=== PATIENT | female | born 1945 | race Hispanic/Latino ===

== ENCOUNTER 2021-11-09 14:32 | Inpatient (IN) | payer OTHER ==
[~2021-11-09] VITALS: Ht 160 cm; Wt 108.7 kg
[2021-11-09] MEDS ORDERED: CEFTRIAXONE 1G VIAL IVP ONE (15:00)
[2021-11-09] MEDS ORDERED: DEXAMETHASONE SOD PHOSPHATE 4 MG/ML 1ML VIAL IVP ONE (15:00)
[2021-11-09] MEDS ORDERED: ACETAMINOPHEN 500 MG TABLET PO ONE (15:00)
[2021-11-09 15:03] LABS: ABG BASE EXCESS -2.4 mmol/L (-2.0-3.0); ABG HCO3 22.2 mmol/L (21.0-28.0); ABG PCO2 38 mmHg (32-45)
[2021-11-09 15:17] LABS: BASOPHILS % (AUTO) 0.4 % (0.0-5.0); EOSINOPHILS % (AUTO) 0.8 % (0.0-8.0); HEMATOCRIT 38.4 % (36-48); LYMPHOCYTES % (AUTO) 6.1 % (21.0-51.0); MEAN CORPUSCULAR HEMOGLOBIN 32.3 pg (27.0-33.0); MEAN CORPUSCULAR HGB CONC 34.6 g/dL (32.0-36.0); MEAN CORPUSCULAR VOLUME 93.2 fL (79-99); MONOCYTES % (AUTO) 3.1 % (3.0-13.0); NEUTROPHILS % (AUTO) 86.7 % (40.0-77.0); NUCLEATED RED BLOOD CELLS 0.1 % (0.0-0.19); PLATELET COUNT (AUTO) 219 K/uL (130-400); RED BLOOD CELL COUNT(AUTO) 4.12 MIL/uL (4.00-5.50); RED CELL DISTRIBUTION WIDTH 13.2 % (11.0-15.5)
[2021-11-09] MEDS ORDERED: 0.9%NACL 100ML 100 ML ONE (15:32)
[2021-11-09 15:40] LABS: CREATININE 1.2 mg/dL (0.5-1.5); POTASSIUM 4.5 mmol/L (3.5-5.1)
[2021-11-09] MEDS: DOXYCYCLINE HYCLATE 100 MG TABLET PO SCH ×3 (15:40→20:34)
[2021-11-09 15:47] LABS: ALBUMIN 2.7 g/dL (3.5-5.0); BILIRUBIN,TOTAL 0.4 mg/dL (0.2-1.0); TOTAL PROTEIN, SERUM 7.3 g/dL (6.0-8.3)
[2021-11-09 15:55] LABS: CRP QUANTITATIVE 191.4 mg/L (0.00-9.0)
[2021-11-09] MEDS ORDERED: ALBUTEROL INHALER 90MCG/INH IH PRN (20:30)
[2021-11-09] MEDS: INSULIN HUMULIN R 100 UNIT/ML 3ML SQ SCH ×2 (20:30→20:37)
[2021-11-09] MEDS: ENOXAPARIN SODIUM 30 MG/0.3 ML SQ SCH (20:34)
[2021-11-09] MEDS ORDERED: AMLODIPINE PO (20:40)
[2021-11-09] MEDS ORDERED: GLIP5TAB11 PO (20:40)
[2021-11-09] MEDS ORDERED: SIMV-43 PO (20:42)
[2021-11-09] MEDS ORDERED: BENZ-70 PO (20:42)
[2021-11-09] MEDS ORDERED: D3 (20:45)
[2021-11-09] MEDS ORDERED: LISI40TA9 PO (20:45)
[2021-11-09] MEDS ORDERED: GABA-529 PO (20:45)
[2021-11-09] MEDS ORDERED: HYDRALAZINE 20MG/ML VIAL ONE (20:48)
[2021-11-09] MEDS ORDERED: SOLU-MEDROL 40MG VIAL IVP SCH (21:00)
[2021-11-09] MEDS: HYDRALAZINE 20MG/ML VIAL IV PRN (22:10)
[2021-11-10] MEDS ORDERED: GUAIFENESIN-DM 200/20 MG 10 ML PO STA (00:49)
[2021-11-10] MEDS: HYDRALAZINE 20MG/ML VIAL IV PRN (02:15)
[2021-11-10] MEDS: ALBUTEROL INHALER 90MCG/INH IH SCH ×6 (02:18→21:00)
[2021-11-10 03:41] VITALS: BP 133/67
[2021-11-10] MEDS: SOLU-MEDROL 125MG VIAL IVP SCH ×3 (05:55→21:09)
[2021-11-10] MEDS: INSULIN HUMULIN R 100 UNIT/ML 3ML SQ SCH ×4 (05:56→21:11)
[2021-11-10 06:02] LABS: BASOPHILS % (AUTO) 0.3 % (0.0-5.0); HEMATOCRIT 39.5 % (36-48); LYMPHOCYTES % (AUTO) 4.8 % (21.0-51.0); MEAN CORPUSCULAR HEMOGLOBIN 31.5 pg (27.0-33.0); MEAN CORPUSCULAR HGB CONC 33.9 g/dL (32.0-36.0); MEAN CORPUSCULAR VOLUME 92.9 fL (79-99); MONOCYTES % (AUTO) 2.3 % (3.0-13.0); PLATELET COUNT (AUTO) 223 K/uL (130-400); RED BLOOD CELL COUNT(AUTO) 4.25 MIL/uL (4.00-5.50); RED CELL DISTRIBUTION WIDTH 13.3 % (11.0-15.5)
[2021-11-10 06:09] LABS: HEMOGLOBIN A1C 8.5 % (4.0-6.0)
[2021-11-10 06:20] LABS: ALBUMIN 2.5 g/dL (3.5-5.0); BILIRUBIN,TOTAL 0.3 mg/dL (0.2-1.0); CREATININE 1.3 mg/dL (0.5-1.5); MAGNESIUM 2.2 mg/dL (1.80-2.40); POTASSIUM 4.2 mmol/L (3.5-5.1); TOTAL PROTEIN, SERUM 7.5 g/dL (6.0-8.3)
[2021-11-10 08:10] VITALS: BP 169/70
[2021-11-10] MEDS: DOXYCYCLINE HYCLATE 100 MG TABLET PO SCH ×2 (08:32→21:10)
[2021-11-10] MEDS: ENOXAPARIN SODIUM 30 MG/0.3 ML SQ SCH ×2 (08:33→21:09)
[2021-11-10] MEDS: FAMOTIDINE 20MG VIAL IV SCH (11:27)
[2021-11-10] MEDS ORDERED: INSULIN GLARGINE 100 UNITS/ML 10 ML VIAL SQ ONE (12:00)
[2021-11-10 12:16] VITALS: BP 155/75
[2021-11-10] MEDS: AMLODIPINE 5 MG TAB PO SCH (12:36)
[2021-11-10] MEDS: LISINOPRIL 40 MG TABLET PO SCH (12:37)
[2021-11-10 13:17] LABS: INR 1.04 (0.85-1.15); PROTHROMBIN TIME 11.3 SEC (9.6-11.6)
[2021-11-10 13:18] LABS: PARTIAL THROMBOPLASTIN TIME 28.9 SEC (26.3-35.5)
[2021-11-10] MEDS: BENZONATATE 100 MG CAPSULE PO SCH ×2 (14:57→21:10)
[2021-11-10] MEDS: GABAPENTIN 100 MG CAPSULE PO SCH ×2 (14:57→21:10)
[2021-11-10] MEDS: CEFTRIAXONE 1G VIAL IVP SCH (15:30)
[2021-11-10 16:19] VITALS: BP 160/76
[2021-11-10] MEDS: GUAIFENESIN SUGAR-FREE 100 MG/5 ML UDCUP PO PRN ×2 (17:21→21:22)
[2021-11-10] MEDS: ALBUTEROL 0.083% 2.5 MG/3 ML INH IH SCH ×2 (18:00)
[2021-11-10] MEDS ORDERED: LACTULOSE 20 GM/30 ML UDCUP PO PRN (19:00)
[2021-11-10 19:53] VITALS: BP 161/68
[2021-11-10] MEDS: SIMVASTATIN 20 MG TABLET PO SCH (21:10)
[2021-11-10] MEDS: INSULIN GLARGINE 100 UNITS/ML 10 ML VIAL SQ SCH (21:12)
[2021-11-11] VITALS: BP 150/74
[2021-11-11] MEDS: ALBUTEROL INHALER 90MCG/INH IH SCH ×4 (01:00→21:00)
[2021-11-11 04:11] VITALS: BP 168/72
[2021-11-11 04:46] LABS: HEMATOCRIT 40.6 % (36-48); MEAN CORPUSCULAR HEMOGLOBIN 31.3 pg (27.0-33.0); MEAN CORPUSCULAR HGB CONC 33.5 g/dL (32.0-36.0); MEAN CORPUSCULAR VOLUME 93.3 fL (79-99); NUCLEATED RED BLOOD CELLS 0.1 % (0.0-0.19); RED BLOOD CELL COUNT(AUTO) 4.35 MIL/uL (4.00-5.50); RED CELL DISTRIBUTION WIDTH 13.2 % (11.0-15.5); WHITE BLOOD COUNT (AUTO) 27.2 K/uL (4.8-10.8)
[2021-11-11 04:48] LABS: CREATININE 1.7 mg/dL (0.5-1.5); POTASSIUM 3.6 mmol/L (3.5-5.1)
[2021-11-11] MEDS: SOLU-MEDROL 125MG VIAL IVP SCH ×3 (05:15→21:05)
[2021-11-11] MEDS: INSULIN HUMULIN R 100 UNIT/ML 3ML SQ SCH ×4 (06:17→21:04)
[2021-11-11] MEDS: INSULIN GLARGINE 100 UNITS/ML 10 ML VIAL SQ SCH ×2 (06:18→21:04)
[2021-11-11] MEDS: ALBUTEROL 0.083% 2.5 MG/3 ML INH IH SCH ×2 (06:19)
[2021-11-11 06:28] LABS: ABG BASE EXCESS -2.5 mmol/L (-2.0-3.0); ABG HCO3 20.9 mmol/L (21.0-28.0); ABG OXYGEN SATURATION 85.4 % (95.0-99.0); ABG PCO2 33 mmHg (32-45)
[2021-11-11 08:30] VITALS: BP 167/78
[2021-11-11] MEDS ORDERED: AMLODIPINE 5 MG TAB PO SCH (09:00)
[2021-11-11] MEDS ORDERED: LISINOPRIL 40 MG TABLET PO SCH (09:00)
[2021-11-11] MEDS: DOXYCYCLINE HYCLATE 100 MG TABLET PO SCH ×3 (09:10→21:01)
[2021-11-11] MEDS: GABAPENTIN 100 MG CAPSULE PO SCH ×3 (09:10→21:02)
[2021-11-11] MEDS: AMLODIPINE 5 MG TAB PO SCH (09:10)
[2021-11-11] MEDS: LISINOPRIL 40 MG TABLET PO SCH (09:10)
[2021-11-11] MEDS: BENZONATATE 100 MG CAPSULE PO SCH ×3 (09:11→21:02)
[2021-11-11] MEDS: FAMOTIDINE 20MG VIAL IV SCH (09:11)
[2021-11-11] MEDS: ENOXAPARIN SODIUM 30 MG/0.3 ML SQ SCH ×2 (09:11→21:02)
[2021-11-11] MEDS: FUROSEMIDE 20MG VIAL IV SCH ×2 (11:05→21:39)
[2021-11-11 12:27] VITALS: BP 161/83
[2021-11-11 16:30] VITALS: BP 155/80
[2021-11-11] MEDS: CEFTRIAXONE 1G VIAL IVP SCH (16:36)
[2021-11-11 19:43] VITALS: BP 156/68
[2021-11-11] MEDS: SIMVASTATIN 20 MG TABLET PO SCH (21:02)
[2021-11-12] VITALS (7 sets, daily range): BP systolic 125–158; BP diastolic 64–77
[2021-11-12 04:03] LABS: HEMATOCRIT 40.4 % (36-48); MEAN CORPUSCULAR HEMOGLOBIN 31.6 pg (27.0-33.0); MEAN CORPUSCULAR HGB CONC 33.7 g/dL (32.0-36.0); RED BLOOD CELL COUNT(AUTO) 4.3 MIL/uL (4.00-5.50); WHITE BLOOD COUNT (AUTO) 18.2 K/uL (4.8-10.8)
[2021-11-12 04:10] LABS: CREATININE 1.7 mg/dL (0.5-1.5)
[2021-11-12] MEDS: SOLU-MEDROL 125MG VIAL IVP SCH ×3 (04:34→20:01)
[2021-11-12] MEDS: INSULIN GLARGINE 100 UNITS/ML 10 ML VIAL SQ SCH ×2 (06:49→20:08)
[2021-11-12] MEDS: INSULIN HUMULIN R 100 UNIT/ML 3ML SQ SCH ×4 (06:50→20:07)
[2021-11-12 07:28] LABS: ABG BASE EXCESS -1.1 mmol/L (-2.0-3.0); ABG HCO3 22.1 mmol/L (21.0-28.0); ABG OXYGEN SATURATION 86.2 % (95.0-99.0); ABG PCO2 33 mmHg (32-45)
[2021-11-12] MEDS: DOXYCYCLINE HYCLATE 100 MG TABLET PO SCH ×3 (09:06→20:01)
[2021-11-12] MEDS: BENZONATATE 100 MG CAPSULE PO SCH ×3 (09:06→20:05)
[2021-11-12] MEDS: FAMOTIDINE 20MG VIAL IV SCH (09:07)
[2021-11-12] MEDS: AMLODIPINE 5 MG TAB PO SCH (09:07)
[2021-11-12] MEDS: GABAPENTIN 100 MG CAPSULE PO SCH ×3 (09:07→20:01)
[2021-11-12] MEDS: LISINOPRIL 40 MG TABLET PO SCH (09:07)
[2021-11-12] MEDS: ENOXAPARIN SODIUM 30 MG/0.3 ML SQ SCH ×2 (09:08→20:02)
[2021-11-12] MEDS: FUROSEMIDE 20MG VIAL IV SCH ×2 (11:44→22:38)
[2021-11-12] MEDS: CEFTRIAXONE 1G VIAL IVP SCH (17:43)
[2021-11-12] MEDS: GUAIFENESIN SUGAR-FREE 100 MG/5 ML UDCUP PO PRN (20:00)
[2021-11-12] MEDS: SIMVASTATIN 20 MG TABLET PO SCH (20:01)
[2021-11-12] MEDS ORDERED: INSULIN HUMULIN R 100 UNIT/ML 3ML SQ ONE (21:30)
[2021-11-13] VITALS (10 sets, daily range): BP systolic 114–167; BP diastolic 44–94
[2021-11-13] MEDS: ALBUTEROL INHALER 90MCG/INH IH SCH ×6 (00:52→20:01)
[2021-11-13] MEDS: SOLU-MEDROL 125MG VIAL IVP SCH (04:30)
[2021-11-13 05:20] LABS: CREATININE 1.7 mg/dL (0.5-1.5); HEMATOCRIT 43.7 % (36-48); MEAN CORPUSCULAR HEMOGLOBIN 31.3 pg (27.0-33.0); MEAN CORPUSCULAR HGB CONC 33.4 g/dL (32.0-36.0); MEAN CORPUSCULAR VOLUME 93.6 fL (79-99); POTASSIUM 3.5 mmol/L (3.5-5.1); RED BLOOD CELL COUNT(AUTO) 4.67 MIL/uL (4.00-5.50); WHITE BLOOD COUNT (AUTO) 24.5 K/uL (4.8-10.8)
[2021-11-13] MEDS: INSULIN GLARGINE 100 UNITS/ML 10 ML VIAL SQ SCH ×2 (06:21→20:06)
[2021-11-13] MEDS: INSULIN HUMULIN R 100 UNIT/ML 3ML SQ SCH ×4 (06:22→20:03)
[2021-11-13] MEDS: GABAPENTIN 100 MG CAPSULE PO SCH ×3 (08:58→20:00)
[2021-11-13] MEDS: LISINOPRIL 40 MG TABLET PO SCH (08:59)
[2021-11-13] MEDS: DOXYCYCLINE HYCLATE 100 MG TABLET PO SCH ×3 (08:59→20:00)
[2021-11-13] MEDS: AMLODIPINE 5 MG TAB PO SCH (08:59)
[2021-11-13] MEDS: FAMOTIDINE 20MG VIAL IV SCH (08:59)
[2021-11-13] MEDS: BENZONATATE 100 MG CAPSULE PO SCH ×3 (08:59→20:00)
[2021-11-13] MEDS: ENOXAPARIN SODIUM 30 MG/0.3 ML SQ SCH ×2 (09:00→20:01)
[2021-11-13] MEDS: FUROSEMIDE 20MG VIAL IV SCH (10:30)
[2021-11-13] MEDS: DIAZEPAM 5 MG TABLET PO SCH ×2 (13:38→20:01)
[2021-11-13] MEDS: CEFTRIAXONE 1G VIAL IVP SCH (17:05)
[2021-11-13] MEDS: GUAIFENESIN SUGAR-FREE 100 MG/5 ML UDCUP PO PRN (18:49)
[2021-11-13] MEDS: SIMVASTATIN 20 MG TABLET PO SCH (20:00)
[2021-11-14] VITALS (10 sets, daily range): BP systolic 113–175; BP diastolic 57–77
[2021-11-14] MEDS: ALBUTEROL INHALER 90MCG/INH IH SCH ×6 (00:12→22:03)
[2021-11-14 04:13] LABS: HEMATOCRIT 40.9 % (36-48); MEAN CORPUSCULAR HEMOGLOBIN 31.9 pg (27.0-33.0); MEAN CORPUSCULAR HGB CONC 33.5 g/dL (32.0-36.0); MEAN CORPUSCULAR VOLUME 95.1 fL (79-99); RED BLOOD CELL COUNT(AUTO) 4.3 MIL/uL (4.00-5.50); RED CELL DISTRIBUTION WIDTH 13.1 % (11.0-15.5); WHITE BLOOD COUNT (AUTO) 23.5 K/uL (4.8-10.8)
[2021-11-14 04:26] LABS: CREATININE 1.3 mg/dL (0.5-1.5); POTASSIUM 3.6 mmol/L (3.5-5.1)
[2021-11-14] MEDS: SOLU-MEDROL 125MG VIAL IVP SCH ×3 (05:33→21:15)
[2021-11-14] MEDS: DIAZEPAM 5 MG TABLET PO SCH ×3 (05:34→21:15)
[2021-11-14] MEDS: INSULIN HUMULIN R 100 UNIT/ML 3ML SQ SCH ×4 (07:30→21:16)
[2021-11-14] MEDS: GABAPENTIN 100 MG CAPSULE PO SCH ×3 (09:25→21:14)
[2021-11-14] MEDS: FAMOTIDINE 20MG VIAL IV SCH (09:26)
[2021-11-14] MEDS: BENZONATATE 100 MG CAPSULE PO SCH ×3 (09:26→21:14)
[2021-11-14] MEDS: DOXYCYCLINE HYCLATE 100 MG TABLET PO SCH ×3 (09:26→21:14)
[2021-11-14] MEDS: AMLODIPINE 5 MG TAB PO SCH (09:26)
[2021-11-14] MEDS: LISINOPRIL 40 MG TABLET PO SCH (09:26)
[2021-11-14] MEDS: INSULIN GLARGINE 100 UNITS/ML 10 ML VIAL SQ SCH ×2 (10:18→21:17)
[2021-11-14] MEDS: ENOXAPARIN SODIUM 30 MG/0.3 ML SQ SCH ×2 (10:19→21:19)
[2021-11-14] MEDS: DEXMEDETOMIDINE 400MCG/NS100ML IV SCH (11:33)
[2021-11-14] MEDS: CEFTRIAXONE 1G VIAL IVP SCH (17:01)
[2021-11-14] MEDS: SIMVASTATIN 20 MG TABLET PO SCH (21:14)
[2021-11-14] MEDS: ALBUTEROL INHALER 90MCG/INH IH PRN (22:02)
[2021-11-15] VITALS (23 sets, daily range): BP systolic 106–184; BP diastolic 62–92
[2021-11-15] MEDS: ALBUTEROL INHALER 90MCG/INH IH SCH ×6 (00:10→20:47)
[2021-11-15] MEDS: DEXMEDETOMIDINE 400MCG/NS100ML IV SCH (01:33)
[2021-11-15 04:37] LABS: HEMATOCRIT 37.6 % (36-48); MEAN CORPUSCULAR HEMOGLOBIN 31.3 pg (27.0-33.0); MEAN CORPUSCULAR HGB CONC 33.5 g/dL (32.0-36.0); MEAN CORPUSCULAR VOLUME 93.3 fL (79-99); RED BLOOD CELL COUNT(AUTO) 4.03 MIL/uL (4.00-5.50); RED CELL DISTRIBUTION WIDTH 12.8 % (11.0-15.5)
[2021-11-15 05:09] LABS: CREATININE 1.2 mg/dL (0.5-1.5); POTASSIUM 4.1 mmol/L (3.5-5.1)
[2021-11-15] MEDS: DIAZEPAM 5 MG TABLET PO SCH ×3 (05:13→22:00)
[2021-11-15] MEDS: SOLU-MEDROL 125MG VIAL IVP SCH ×3 (05:14→20:27)
[2021-11-15] MEDS: INSULIN HUMULIN R 100 UNIT/ML 3ML SQ SCH ×4 (07:30→20:30)
[2021-11-15] MEDS: FAMOTIDINE 20MG VIAL IV SCH (08:38)
[2021-11-15] MEDS: LISINOPRIL 40 MG TABLET PO SCH (08:38)
[2021-11-15] MEDS: AMLODIPINE 5 MG TAB PO SCH (08:38)
[2021-11-15] MEDS: DOXYCYCLINE HYCLATE 100 MG TABLET PO SCH ×2 (08:38→20:27)
[2021-11-15] MEDS: BENZONATATE 100 MG CAPSULE PO SCH ×3 (08:38→20:28)
[2021-11-15] MEDS: GABAPENTIN 100 MG CAPSULE PO SCH ×3 (08:39→20:28)
[2021-11-15] MEDS: ENOXAPARIN SODIUM 30 MG/0.3 ML SQ SCH ×2 (08:39→20:42)
[2021-11-15] MEDS: INSULIN GLARGINE 100 UNITS/ML 10 ML VIAL SQ SCH ×2 (08:40→20:41)
[2021-11-15] MEDS: ARTIFICIAL TEARS 3.5 GM OINTMENT OD SCH ×2 (11:38→21:00)
[2021-11-15] MEDS: CEFTRIAXONE 1G VIAL IVP SCH (16:33)
[2021-11-15] MEDS: SIMVASTATIN 20 MG TABLET PO SCH (20:28)
[2021-11-15] MEDS: ALBUTEROL INHALER 90MCG/INH IH PRN (20:46)
[2021-11-16] VITALS (23 sets, daily range): BP systolic 140–176; BP diastolic 52–80
[2021-11-16] MEDS: DEXMEDETOMIDINE 400MCG/NS100ML IV SCH (00:15)
[2021-11-16] MEDS: ALBUTEROL INHALER 90MCG/INH IH SCH ×6 (01:02→21:01)
[2021-11-16] MEDS: ALBUTEROL INHALER 90MCG/INH IH PRN ×2 (01:02→21:01)
[2021-11-16 03:23] LABS: HEMATOCRIT 38.3 % (36-48); MEAN CORPUSCULAR HEMOGLOBIN 31.4 pg (27.0-33.0); MEAN CORPUSCULAR HGB CONC 33.7 g/dL (32.0-36.0); MEAN CORPUSCULAR VOLUME 93.2 fL (79-99); RED BLOOD CELL COUNT(AUTO) 4.11 MIL/uL (4.00-5.50); RED CELL DISTRIBUTION WIDTH 12.6 % (11.0-15.5); WHITE BLOOD COUNT (AUTO) 24.4 K/uL (4.8-10.8)
[2021-11-16 03:33] LABS: CREATININE 1.2 mg/dL (0.5-1.5); POTASSIUM 4.6 mmol/L (3.5-5.1)
[2021-11-16 06:17] LABS: ABG BASE EXCESS -0.6 mmol/L (-2.0-3.0); ABG HCO3 24.7 mmol/L (21.0-28.0); ABG OXYGEN SATURATION 90.9 % (95.0-99.0); ABG PCO2 43 mmHg (32-45)
[2021-11-16] MEDS: SOLU-MEDROL 125MG VIAL IVP SCH ×3 (06:26→21:02)
[2021-11-16] MEDS: DIAZEPAM 5 MG TABLET PO SCH ×3 (06:32→21:13)
[2021-11-16] MEDS: INSULIN HUMULIN R 100 UNIT/ML 3ML SQ SCH ×4 (07:30→21:10)
[2021-11-16] MEDS: DOXYCYCLINE HYCLATE 100 MG TABLET PO SCH ×2 (07:46→21:07)
[2021-11-16] MEDS: LISINOPRIL 40 MG TABLET PO SCH (07:46)
[2021-11-16] MEDS: ENOXAPARIN SODIUM 30 MG/0.3 ML SQ SCH ×2 (07:47→21:12)
[2021-11-16] MEDS: FAMOTIDINE 20MG VIAL IV SCH (07:47)
[2021-11-16] MEDS: AMLODIPINE 5 MG TAB PO SCH (07:47)
[2021-11-16] MEDS: ARTIFICIAL TEARS 3.5 GM OINTMENT OD SCH ×2 (07:48→08:16)
[2021-11-16] MEDS: GABAPENTIN 100 MG CAPSULE PO SCH ×3 (07:52→21:07)
[2021-11-16] MEDS: BENZONATATE 100 MG CAPSULE PO SCH ×3 (07:52→21:07)
[2021-11-16] MEDS: INSULIN GLARGINE 100 UNITS/ML 10 ML VIAL SQ SCH ×2 (08:53→21:11)
[2021-11-16] MEDS ORDERED: LIDOCAINE HCL 2% VISCOUS 15 ML UDCUP PO PRN (11:00)
[2021-11-16] MEDS: ARTIFICAL TEARS SOL 15 ML OD SCH ×2 (11:56→21:03)
[2021-11-16] MEDS ORDERED: [UNRECOGNIZED DRUG - OTHER] PO PRN ×2 (13:00)
[2021-11-16] MEDS ORDERED: SIMETHICONE PO PRN ×2 (13:00)
[2021-11-16] MEDS ORDERED: MAGNESIUM HYDROXIDE PO PRN ×2 (13:00)
[2021-11-16] MEDS ORDERED: LIDOCAINE HCL PO PRN ×2 (13:00)
[2021-11-16] MEDS ORDERED: ALUMINUM HYDROXIDE PO PRN ×2 (13:00)
[2021-11-16] MEDS ORDERED: COMPOUND PO MISCELLANEOUS 1 EACH MISC MISC PRN (13:30)
[2021-11-16] MEDS: CEFTRIAXONE 1G VIAL IVP SCH (16:31)
[2021-11-16] MEDS: SIMVASTATIN 20 MG TABLET PO SCH (21:07)
[2021-11-17] VITALS (24 sets, daily range): BP systolic 123–171; BP diastolic 64–85
[2021-11-17] MEDS: DEXMEDETOMIDINE 400MCG/NS100ML IV SCH ×2 (01:34→16:20)
[2021-11-17] MEDS: ALBUTEROL INHALER 90MCG/INH IH SCH ×6 (01:36→20:29)
[2021-11-17] MEDS: ALBUTEROL INHALER 90MCG/INH IH PRN ×3 (01:36→20:29)
[2021-11-17 04:07] LABS: HEMATOCRIT 40.5 % (36-48); MEAN CORPUSCULAR HEMOGLOBIN 32.3 pg (27.0-33.0); MEAN CORPUSCULAR HGB CONC 34.6 g/dL (32.0-36.0); MEAN CORPUSCULAR VOLUME 93.5 fL (79-99); RED BLOOD CELL COUNT(AUTO) 4.33 MIL/uL (4.00-5.50); RED CELL DISTRIBUTION WIDTH 12.4 % (11.0-15.5); WHITE BLOOD COUNT (AUTO) 25.4 K/uL (4.8-10.8)
[2021-11-17 04:39] LABS: CREATININE 1.1 mg/dL (0.5-1.5); POTASSIUM 4.5 mmol/L (3.5-5.1)
[2021-11-17] MEDS: SOLU-MEDROL 125MG VIAL IVP SCH ×3 (05:24→20:40)
[2021-11-17] MEDS: DIAZEPAM 5 MG TABLET PO SCH ×3 (05:25→20:30)
[2021-11-17] MEDS: FAMOTIDINE 20MG VIAL IV SCH (08:14)
[2021-11-17] MEDS: AMLODIPINE 5 MG TAB PO SCH (08:14)
[2021-11-17] MEDS: ENOXAPARIN SODIUM 30 MG/0.3 ML SQ SCH ×2 (08:14→20:37)
[2021-11-17] MEDS: BENZONATATE 100 MG CAPSULE PO SCH ×3 (08:14→20:40)
[2021-11-17] MEDS: DOXYCYCLINE HYCLATE 100 MG TABLET PO SCH ×2 (08:14→20:30)
[2021-11-17] MEDS: GABAPENTIN 100 MG CAPSULE PO SCH ×3 (08:14→20:40)
[2021-11-17] MEDS: ARTIFICAL TEARS SOL 15 ML OD SCH ×2 (08:15→20:30)
[2021-11-17] MEDS: LISINOPRIL 40 MG TABLET PO SCH (08:15)
[2021-11-17] MEDS: INSULIN GLARGINE 100 UNITS/ML 10 ML VIAL SQ SCH ×2 (08:16→20:33)
[2021-11-17] MEDS: INSULIN HUMULIN R 100 UNIT/ML 3ML SQ SCH ×4 (08:17→20:32)
[2021-11-17] MEDS: CEFTRIAXONE 1G VIAL IVP SCH (15:33)
[2021-11-17] MEDS: SIMVASTATIN 20 MG TABLET PO SCH (20:30)
[2021-11-18] VITALS (24 sets, daily range): BP systolic 121–172; BP diastolic 68–93
[2021-11-18] MEDS: ALBUTEROL INHALER 90MCG/INH IH SCH ×6 (00:05→20:46)
[2021-11-18 05:11] LABS: MEAN CORPUSCULAR HEMOGLOBIN 31.3 pg (27.0-33.0); MEAN CORPUSCULAR HGB CONC 34.2 g/dL (32.0-36.0); MEAN CORPUSCULAR VOLUME 91.5 fL (79-99); RED BLOOD CELL COUNT(AUTO) 4.7 MIL/uL (4.00-5.50); RED CELL DISTRIBUTION WIDTH 12.8 % (11.0-15.5); WHITE BLOOD COUNT (AUTO) 25.2 K/uL (4.8-10.8)
[2021-11-18 05:19] LABS: CREATININE 1.1 mg/dL (0.5-1.5); POTASSIUM 4.7 mmol/L (3.5-5.1)
[2021-11-18] MEDS: DIAZEPAM 5 MG TABLET PO SCH ×3 (05:33→22:00)
[2021-11-18] MEDS: SOLU-MEDROL 125MG VIAL IVP SCH ×3 (05:33→20:47)
[2021-11-18 07:21] LABS: ABG BASE EXCESS 0.4 mmol/L (-2.0-3.0); ABG HCO3 25.4 mmol/L (21.0-28.0); ABG OXYGEN SATURATION 85.1 % (95.0-99.0); ABG PCO2 42 mmHg (32-45)
[2021-11-18] MEDS: INSULIN HUMULIN R 100 UNIT/ML 3ML SQ SCH ×4 (07:30→20:12)
[2021-11-18] MEDS: DEXMEDETOMIDINE 400MCG/NS100ML IV SCH ×2 (08:00→17:17)
[2021-11-18] MEDS: INSULIN GLARGINE 100 UNITS/ML 10 ML VIAL SQ SCH ×2 (08:12→20:31)
[2021-11-18] MEDS: DOXYCYCLINE HYCLATE 100 MG TABLET PO SCH ×2 (08:13→20:30)
[2021-11-18] MEDS: FAMOTIDINE 20MG VIAL IV SCH (08:13)
[2021-11-18] MEDS: AMLODIPINE 5 MG TAB PO SCH (08:13)
[2021-11-18] MEDS: LISINOPRIL 40 MG TABLET PO SCH (08:13)
[2021-11-18] MEDS: ARTIFICAL TEARS SOL 15 ML OD SCH ×2 (08:14→20:46)
[2021-11-18] MEDS: ENOXAPARIN SODIUM 30 MG/0.3 ML SQ SCH ×2 (08:14→20:45)
[2021-11-18] MEDS: BENZONATATE 100 MG CAPSULE PO SCH ×3 (08:16→20:31)
[2021-11-18] MEDS: GABAPENTIN 100 MG CAPSULE PO SCH ×3 (08:16→20:31)
[2021-11-18] MEDS: CEFTRIAXONE 1G VIAL IVP SCH (14:21)
[2021-11-18] MEDS: SIMVASTATIN 20 MG TABLET PO SCH (20:31)
[2021-11-18] MEDS: ALBUTEROL INHALER 90MCG/INH IH PRN (20:46)
[2021-11-19] VITALS (24 sets, daily range): BP systolic 103–180; BP diastolic 43–109
[2021-11-19] MEDS: ALBUTEROL INHALER 90MCG/INH IH SCH ×6 (01:00→20:40)
[2021-11-19] MEDS: DEXMEDETOMIDINE 400MCG/NS100ML IV SCH ×3 (02:24→20:38)
[2021-11-19 04:48] LABS: HEMATOCRIT 46.5 % (36-48); MEAN CORPUSCULAR HEMOGLOBIN 31.4 pg (27.0-33.0); MEAN CORPUSCULAR HGB CONC 33.3 g/dL (32.0-36.0); MEAN CORPUSCULAR VOLUME 94.3 fL (79-99); RED BLOOD CELL COUNT(AUTO) 4.93 MIL/uL (4.00-5.50); RED CELL DISTRIBUTION WIDTH 12.9 % (11.0-15.5); WHITE BLOOD COUNT (AUTO) 23.7 K/uL (4.8-10.8)
[2021-11-19 04:56] LABS: CREATININE 1.2 mg/dL (0.5-1.5); POTASSIUM 5.3 mmol/L (3.5-5.1)
[2021-11-19] MEDS: SOLU-MEDROL 125MG VIAL IVP SCH ×3 (05:13→20:40)
[2021-11-19] MEDS: DIAZEPAM 5 MG TABLET PO SCH ×3 (05:14→20:37)
[2021-11-19] MEDS: INSULIN HUMULIN R 100 UNIT/ML 3ML SQ SCH ×4 (07:30→20:35)
[2021-11-19] MEDS: BENZONATATE 100 MG CAPSULE PO SCH ×3 (09:00→21:00)
[2021-11-19] MEDS: AMLODIPINE 5 MG TAB PO SCH (09:00)
[2021-11-19] MEDS: LISINOPRIL 40 MG TABLET PO SCH (09:00)
[2021-11-19] MEDS: ARTIFICAL TEARS SOL 15 ML OD SCH ×2 (09:00→20:39)
[2021-11-19] MEDS: DOXYCYCLINE HYCLATE 100 MG TABLET PO SCH ×2 (09:00→20:39)
[2021-11-19] MEDS: GABAPENTIN 100 MG CAPSULE PO SCH ×3 (09:00→20:38)
[2021-11-19] MEDS: FAMOTIDINE 20MG VIAL IV SCH (09:02)
[2021-11-19] MEDS: ENOXAPARIN SODIUM 30 MG/0.3 ML SQ SCH ×2 (09:03→20:37)
[2021-11-19] MEDS: INSULIN GLARGINE 100 UNITS/ML 10 ML VIAL SQ SCH ×2 (09:05→20:37)
[2021-11-19] MEDS ORDERED: CALCIUM GLUC 1GM 1 GM in 0.9%NACL 100ML 100 ML IV SCH (14:30)
[2021-11-19] MEDS ORDERED: INSULIN HUMULIN R 100 UNIT/ML 3ML IV ONE (14:30)
[2021-11-19] MEDS ORDERED: SODIUM BICARB 50MEQ 50ML VIAL IV SCH (14:30)
[2021-11-19] MEDS ORDERED: DEXTROSE 50%-WATER 50 ML DISP.SYRIN IV ONE ×2 (14:30→15:45)
[2021-11-19] MEDS ORDERED: CALCIUM GLUC 1GM/10ML VIAL ONE (15:45)
[2021-11-19] MEDS: CEFTRIAXONE 1G VIAL IVP SCH (15:53)
[2021-11-19] MEDS: ALBUTEROL INHALER 90MCG/INH IH PRN (20:40)
[2021-11-19] MEDS: SIMVASTATIN 20 MG TABLET PO SCH (21:00)
[2021-11-20] VITALS (11 sets, daily range): BP systolic 121–154; BP diastolic 58–117
[2021-11-20] MEDS: ALBUTEROL INHALER 90MCG/INH IH SCH ×4 (01:14→13:00)
[2021-11-20] MEDS: DEXMEDETOMIDINE 400MCG/NS100ML IV SCH (04:19)
[2021-11-20] MEDS: SOLU-MEDROL 125MG VIAL IVP SCH (04:20)
[2021-11-20] MEDS: DIAZEPAM 5 MG TABLET PO SCH (06:00)
[2021-11-20] MEDS: DOXYCYCLINE HYCLATE 100 MG TABLET PO SCH (09:00)
[2021-11-20] MEDS: LISINOPRIL 40 MG TABLET PO SCH (09:00)
[2021-11-20] MEDS: GABAPENTIN 100 MG CAPSULE PO SCH (09:00)
[2021-11-20] MEDS: AMLODIPINE 5 MG TAB PO SCH (09:00)
[2021-11-20] MEDS: BENZONATATE 100 MG CAPSULE PO SCH (09:00)
[2021-11-20] MEDS: ENOXAPARIN SODIUM 30 MG/0.3 ML SQ SCH (09:28)
[2021-11-20] MEDS: FAMOTIDINE 20MG VIAL IV SCH (09:28)
[2021-11-20] MEDS: ARTIFICAL TEARS SOL 15 ML OD SCH (09:29)
[2021-11-20] MEDS: INSULIN GLARGINE 100 UNITS/ML 10 ML VIAL SQ SCH (09:30)
[2021-11-20] MEDS: INSULIN HUMULIN R 100 UNIT/ML 3ML SQ SCH (09:31)
[2021-11-20 10:47] LABS: ABG BASE EXCESS -1.9 mmol/L (-2.0-3.0); ABG HCO3 25.2 mmol/L (21.0-28.0); ABG OXYGEN SATURATION 74.9 % (95.0-99.0); ABG PCO2 52 mmHg (32-45)
[2021-11-20 11:00] LABS: HEMATOCRIT 50.3 % (36-48); MEAN CORPUSCULAR HGB CONC 32.2 g/dL (32.0-36.0); MEAN CORPUSCULAR VOLUME 96.2 fL (79-99); PLATELET COUNT (AUTO) 122 K/uL (130-400); RED BLOOD CELL COUNT(AUTO) 5.23 MIL/uL (4.00-5.50); RED CELL DISTRIBUTION WIDTH 13.2 % (11.0-15.5); WHITE BLOOD COUNT (AUTO) 28.9 K/uL (4.8-10.8)
[2021-11-20 11:11] LABS: CREATININE 1.8 mg/dL (0.5-1.5); POTASSIUM 5.7 mmol/L (3.5-5.1)
[2021-11-20 12:09] LABS: BAND NEUTROPHILS % (MANUAL) 1 % (0-2); MAN.DIFF COMMENT-IMPRESSION MANUAL DIFFERENTIAL; SEGMENTED NEUTROPHILS % 99 % (40-70)
[2021-11-20 12:10] LABS: PLATELET MORPHOLOGY COMMENT ADEQUATE
[2021-11-20] MEDS ORDERED: HALOPERIDOL INJ 5 MG/ML VIAL IV PRN (13:00)
[2021-11-20] MEDS ORDERED: MORPHINE 2 MG SYG IVP PRN (13:00)
[2021-11-20] MEDS ORDERED: LORAZEPAM 2 MG/ML 1 ML VIAL IVP PRN (13:00)
== END 2021-11-20 18:13 | DRG 177 ==
LOC: EDH 14:32 → EDHIP 15:50 → 2AH 11-10 02:35
PROVIDERS: ADMIT Internal Medicine Infectious Disease; ATTEND Internal Medicine Infectious Disease
PROC: 5A0935A Assistance with Respiratory Ventilation, Less than 24 Consecutive Hours, High Flow/Velocity Cannula (ICD-10-PCS; principal; 2021-11-09)
PROC: 5A0935A Assistance with Respiratory Ventilation, Less than 24 Consecutive Hours, High Flow/Velocity Cannula (ICD-10-PCS; 2021-11-11)
PROC: 5A0935A Assistance with Respiratory Ventilation, Less than 24 Consecutive Hours, High Flow/Velocity Cannula (ICD-10-PCS; 2021-11-12)
PROC: 5A0935A Assistance with Respiratory Ventilation, Less than 24 Consecutive Hours, High Flow/Velocity Cannula (ICD-10-PCS; 2021-11-13)
PROC: 5A09357 Assistance with Respiratory Ventilation, Less than 24 Consecutive Hours, Continuous Positive Airway Pressure (ICD-10-PCS; 2021-11-13)
PROC: 5A09357 Assistance with Respiratory Ventilation, Less than 24 Consecutive Hours, Continuous Positive Airway Pressure (ICD-10-PCS; 2021-11-14)
PROC: 5A0935A Assistance with Respiratory Ventilation, Less than 24 Consecutive Hours, High Flow/Velocity Cannula (ICD-10-PCS; 2021-11-15)
PROC: 5A09357 Assistance with Respiratory Ventilation, Less than 24 Consecutive Hours, Continuous Positive Airway Pressure (ICD-10-PCS; 2021-11-15)
PROC: 5A09557 Assistance with Respiratory Ventilation, Greater than 96 Consecutive Hours, Continuous Positive Airway Pressure (ICD-10-PCS; 2021-11-15)
DX: U07.1 COVID-19 (principal); J12.82 Pneumonia due to coronavirus disease 2019; J96.01 Acute respiratory failure with hypoxia; Z68.41 Body mass index [BMI] 40.0-44.9, adult; G93.40 Encephalopathy, unspecified; Z66 Do not resuscitate; E11.65 Type 2 diabetes mellitus with hyperglycemia; I10 Essential (primary) hypertension; J45.909 Unspecified asthma, uncomplicated; E66.01 Morbid (severe) obesity due to excess calories; E87.5 Hyperkalemia; R53.83 Other fatigue; R53.81 Other malaise; Z53.20 Procedure and treatment not carried out because of patient's decision for unspecified reasons; Z51.5 Encounter for palliative care; Z74.01 Bed confinement status; Z98.42 Cataract extraction status, left eye; Z98.41 Cataract extraction status, right eye
CPT/HCPCS: 36415; 36600; 71045; 80048; 80053; 82435; 82550; 82728; 82803; 82947; 82948; 83036; 83605; 83735; 83880; 84132; 84145; 84295; 84484; 85018; 85025; 85027; 85378; 85610; 85651; 85730; 86140; 87040; 87635; 87804; 93005; 94660; 94664; 99291; C1751; C1894; C9803; G0378; J0360; J0610; J0696; J1100; J1650; J1815; J1940; J2060; J2920; J2930; J3490; J7070